=== PATIENT | female | born 1995 | race Caucasian/White ===

== ENCOUNTER 2020-09-30 20:28 | Emergency (ER) | payer OTHER, SELFPAY ==
--- OUTSIDE RECORDS SUMMARY | 2020-09-30 20:30 | XMS REPORT | Continuity of Care Document ---
:1995 Author Organization [facility] Address [address] [place] [address] Dr. Pascual [address] [place] [id number] Care Team Providers Name Role Phone Unavailable Unavailable Unavailable Problems This patient has no known problems. Allergies, Adverse Reactions, Alerts This patient has no known allergies or adverse reactions. Medications This patient has no known medications. Procedures This patient has no known procedures. Results This patient has no known results.
[2020-09-30 22:35] LABS: SARS-COV-2 RT PCR NEGATIVE (NEGATIVE)
--- NOTE | 2020-09-30 22:50 | ER ---
Nurse's Notes [facility] Name: Brendon Garcia Age: 25 yrs Sex: Female : 1995 Arrival Date: 09/30/2020 Time: 20:31 Bed 12 Private MD: Diagnosis: Acute tonsillitis, unspecified;Acute bronchitis Presentation: 09/30 21:00 Chief complaint: Patient states: sore throat, cough, congestion runny nose since ca1 yesterday. Coronavirus screen: Client denies travel out of the [place] in the last 14 days. congestion, cough unrelated to allergies, runny nose, sore throat, Client presents with at least one sign or symptom that may indicate coronavirus-19. Standard/surgical mask placed on the client. Provider contacted for isolation considerations. Ebola Screen: Patient negative for fever greater than or equal to 101.5 degrees Fahrenheit, and additional compatible Ebola Virus Disease symptoms Patient denies exposure to infectious person. Patient denies travel to an Ebola-affected area in the 21 days before illness onset. No symptoms or risks identified at this time. Initial Sepsis Screen: Does the patient meet any 2 criteria? No. Patient's initial sepsis screen is negative. Does the patient have a suspected source of infection? No. Patient's initial sepsis screen is negative. Risk Assessment: Do you want to hurt yourself or someone else? Patient reports no desire to harm self or others. Onset of symptoms was September 30, 2020. 21:00 Method Of Arrival: Ambulatory ca1 21:00 Acuity: BENY 4 ca1 Triage Assessment: 22:45 General: Appears in no apparent distress. Behavior is calm, cooperative. 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 Flu vaccine is up to date. - Social history:: Smoking status: Patient reports the use of cigarette tobacco products, smokes one-half pack cigarettes per day. Screenin:04 Abuse screen: Denies threats or abuse. Denies injuries from another. Nutritional iw screening: No deficits noted. Tuberculosis screening: No symptoms or risk factors identified. Fall Risk None identified. Assessment: 22:45 General: Appears in no apparent distress. Behavior is calm, cooperative. Pain: Denies iw pain. Neuro: Level of Consciousness is awake, alert, obeys commands, Oriented to person, place, time, situation, Moves all extremities. Full function. Respiratory: Reports shortness of breath cough that is Airway is patent Respiratory effort is even, unlabored, Breath sounds are clear bilaterally. EENT: Throat is clear. Derm: Skin is intact, is healthy with good turgor. Musculoskeletal: Range of motion: intact in all extremities. Vital Signs: 21:00 BP 109 / 76; Pulse 99; Resp 18; Temp 97.5(TE); Pulse Ox 99% on R/A; Weight 81.65 kg ca1 (R); Height 5 ft. 6 in. (167.64 cm) (R); Pain 0/10; 21:00 Body Mass Index 29.05 (81.65 kg, 167.64 cm) ca1 ED Course: 20:31 Patient arrived in ED. am2 21:01 Triage completed. ca1 21:02 Arm band placed on right wrist. ca1 21:08 Flu Sent. ca1 21:08 Strep Sent. ca1 22:06 Maynor Tuttle PA is PHCP. cp 22:06 Blaze Hartman MD is Attending Physician. cp 22:23 Shelby Campbell, RN is Primary Nurse. iw 22:44 Patient has correct armband on for positive identification. iw 23:04 No provider procedures requiring assistance completed. Patient did not have IV access iw during this emergency room visit. Administered Medications: No medications were administered Outcome: 22:49 Discharge ordered by . cp 23:04 Discharged to home ambulatory. iw 23:04 Condition: good 23:04 Discharge instructions given to patient, Instructed on discharge instructions, follow up and referral plans. Demonstrated understanding of instructions, follow-up care, medications, Prescriptions given X 4. 23:05 Patient left the ED. iw Signatures: Shelby Campbell RN RN iw Maynor Tuttle PA PA cp Moreno, Amanda am2 Deandra Perkins RN RN ca1 Corrections: (The following items were deleted from the chart) 21:40 21:08 CORONAVIRUS+MR.LAB.AMALIAZ drawn and sent. ca1 EDMS
--- NOTE | 2020-09-30 22:50 | EDPHYS ---
Physician Documentation [facility] Name: Brendon Garcia Age: 25 yrs Sex: Female : 1995 Arrival Date: 09/30/2020 Time: 20:31 Bed 12 Private MD: ED Physician Blaze Hartman HPI: 09/30 22:15 This 25 yrs old Female presents to ER via Ambulatory with complaints of Sore cp Throat. 22:15 The patient presents with sore throat. Onset: The symptoms/episode began/occurred 2 cp day(s) ago. Modifying factors: the symptoms are aggravated by swallowing. Associated signs and symptoms: Pertinent positives: cough, nasal congestion, Pertinent negatives diarrhea, dysphagia, fever, vomiting. 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 Flu vaccine is up to date. - Social history:: Smoking status: Patient reports the use of cigarette tobacco products, smokes one-half pack cigarettes per day. ROS: 22:20 Eyes: Negative for injury, pain, redness, and discharge. cp 22:20 Constitutional: Negative for body aches, chills, fever, poor PO intake. 22:20 ENT: Positive for sinus congestion, sore throat, Negative for drainage from ear(s), ear pain, difficulty swallowing, difficulty handling secretions. 22:20 Cardiovascular: Negative for chest pain. 22:20 Respiratory: Positive for cough, with no reported sputum, shortness of breath. 22:20 Abdomen/GI: Negative for abdominal pain, nausea, vomiting, and diarrhea. 22:20 Neuro: Negative for altered mental status, headache, weakness. 22:20 All other systems are negative. Exam: 22:22 Head/Face: Normocephalic, atraumatic. cp 22:22 Constitutional: The patient appears in no acute distress, alert, awake, non-toxic, well developed, well nourished. 22:22 Eyes: Periorbital structures: appear normal, Conjunctiva: normal, no exudate, no injection, Sclera: no appreciated abnormality, Lids and lashes: appear normal, bilaterally. Vital Signs: 21:00 BP 109 / 76; Pulse 99; Resp 18; Temp 97.5(TE); Pulse Ox 99% on R/A; Weight 81.65 kg ca1 (R); Height 5 ft. 6 in. (167.64 cm) (R); Pain 0/10; 21:00 Body Mass Index 29.05 (81.65 kg, 167.64 cm) ca1 MDM: 22:11 Patient medically screened. cp 22:30 Differential diagnosis: epiglottitis, group A strep tonsillitis, influenza, ramón's cp angina, peritonsillar abscess pharyngitis, tonsillitis, upper respiratory infection, uvulitis, pneumonia. 22:48 Data reviewed: vital signs, nurses notes, lab test result(s). cp 22:48 Counseling: I had a detailed discussion with the patient and/or guardian regarding: the cp historical points, exam findings, and any diagnostic results supporting the discharge/admit diagnosis, lab results, to return to the emergency department if symptoms worsen or persist or if there are any questions or concerns that arise at home. 09/30 21:05 Order name: Strep [facility] 09/30 21:05 Order name: Flu [facility] 09/30 21:06 Order name: Group A Streptococcus Rapid Sc [facility] 09/30 22:30 Order name: Throat Culture [facility] 09/30 22:35 Order name: COVID-19/FLU A+B EDKY Administered Medications: No medications were administered Disposition: 10/01 01:07 Co-signature as Attending Physician, Blaze Hartman MD. rn Disposition: 09/30/20 22:49 Discharged to Home. Impression: Acute tonsillitis, unspecified, Acute bronchitis. - Condition is Stable. - Discharge Instructions: Acute Bronchitis, Adult, Tonsillitis. - Prescriptions for Biaxin 500 mg Oral Tablet - take 1 tablet by ORAL route every 12 hours for 10 days; 20 tablet. Tessalon Perles 100 mg Oral Capsule - take 2 capsule by ORAL route every 8 hours As needed; 30 capsule. Albuterol Sulfate 90 mcg/actuation - inhale 1-2 puff by INHALATION route every 4-6 hours; 1 Inhaler. Flonase Allergy Relief 50 mcg/actuation Nasal spray,suspension - inhale 1 spray by INTRANASAL route once daily; 1 unit. - Medication Reconciliation Form, Thank You Letter, Antibiotic Education, Prescription Opioid Use form. - Follow up: Private Physician; When: 2 - 3 days; Reason: Worsening of condition. - Problem is new. - Symptoms have improved. Signatures: Dispatcher [employer] [facility] Shelby Campbell RN RN iw Blaze Hartman MD MD rn Page, Corey, PA PA cp Gregorio, GANESH Liriano RN ca1 Corrections: (The following items were deleted from the chart) 09/30 21:40 21:06 CORONAVIRUS+MR.LAB.BRZ ordered. [facility] 21:41 21:06 Influenza Screen (A ordered. [facility] 22:52 22:49 09/30/2020 22:49 Discharged to Home. Impression: Acute tonsillitis, unspecified. cp Condition is Stable. Forms are Medication Reconciliation Form, Thank You Letter, Antibiotic Education, Prescription Opioid Use. Follow up: Private Physician; When: 2 - 3 days; Reason: Worsening of condition. Problem is new. Symptoms have improved. cp 23:05 22:52 09/30/2020 22:49 Discharged to Home. Impression: Acute tonsillitis, unspecified; iw Acute bronchitis. Condition is Stable. Discharge Instructions: Acute Bronchitis, Adult, Tonsillitis. Prescriptions for Biaxin 500 mg Oral Tablet - take 1 tablet by ORAL route every 12 hours for 10 days; 20 tablet, Tessalon Perles 100 mg Oral Capsule - take 2 capsule by ORAL route every 8 hours As needed; 30 capsule, Albuterol Sulfate 90 mcg/actuation - inhale 1-2 puff by INHALATION route every 4-6 hours; 1 Inhaler, Flonase Allergy Relief 50 mcg/actuation Nasal spray,suspension - inhale 1 spray by INTRANASAL route once daily; 1 unit. and Forms are Medication Reconciliation Form, Thank You Letter, Antibiotic Education, Prescription Opioid Use. Follow up: Private Physician; When: 2 - 3 days; Reason: Worsening of condition. Problem is new. Symptoms have improved. cp
[2020-09-30 23:40] VITALS: BP 109/76; TEMP 97.5; O2SAT 99
== END 2020-09-30 23:05 | disposition home or self-care (01) ==
LOC: ER 20:28
DX: J20.9 Acute bronchitis, unspecified (principal); J03.90 Acute tonsillitis, unspecified; Z20.822 Contact with and (suspected) exposure to COVID-19; Z88.0 Allergy status to penicillin; F17.210 Nicotine dependence, cigarettes, uncomplicated
CPT/HCPCS: 0240U; 87070; 87081; 99283